=== PATIENT | female | born 1995 | race American Indian/Alaskan Native ===

== ENCOUNTER 2021-05-23 20:56 | Emergency (ER) | payer SELFPAY ==
[2021-05-24] MEDS ORDERED: oxyCODONE /ACETAMINOPHEN 5-325MG TAB PO ONE (00:32)
[2021-05-24 01:05] LABS: Bilirubin,Urine NEG (Negative); Blood,Urine NEG (Negative); Color,Urine Yellow (Yellow); HCG Qualitative,Urine Negative (Negative); Mucus,Urine FEW /HPF; Protein,Urine <15 mg/dL mg/dL (Negative); Urobilinogen,Urine < 2.0 mg/dL (<2.0)
--- NOTE | 2021-05-24 01:07 | Emergency Department Report ---
ED Female HPI - General Chief complaint: Urogenital-Female Stated complaint: BURINING URINATION/BACK PAIN Time Seen by Provider: 05/23/21 23:54 Source: patient Mode of arrival: Ambulatory Limitations: No Limitations - History of Present Illness MD Complaint: dysuria, pelvic pain -: Gradual, days(s) (For the past few days) Location: suprapubic Radiation: non-radiating Severity: mild Worsens with: urination Are you Now?: No Associated Symptoms: dysuria, other (Increased urgency decreased urinary production burning with urination). denies: vaginal discharge, vaginal bleeding, headaches, loss of appetite - Related Data Sexually active: Yes Previous Rx's Medication Instructions Recorded Last Taken Type Acetaminophen [Tylenol] 500 mg PO Q6HR PRN #30 tablet 11/26/19 Unknown Rx Ciprofloxacin HCl 500 mg PO BID #20 05/24/21 Unknown Rx Phenazopyridine [Pyridium] 200 mg PO PC #9 tablet 05/24/21 Unknown Rx Allergies Allergy/AdvReac Type Severity Reaction Status Date / Time Sulfa (Sulfonamide Allergy Unknown Verified 11/25/19 18:36 Antibiotics) ED Review of Systems ROS: Stated complaint: BURINING URINATION/BACK PAIN Other details as noted in HPI Comment: All other systems reviewed and negative ED Past Medical Hx - Social History Smoking Status: Never Smoker - Medications Home Medications: Home Medications Medication Instructions Recorded Confirmed Last Taken Type Acetaminophen [Tylenol] 500 mg PO Q6HR PRN #30 tablet 11/26/19 Unknown Rx Ciprofloxacin HCl 500 mg PO BID #20 05/24/21 Unknown Rx Phenazopyridine [Pyridium] 200 mg PO PC #9 tablet 05/24/21 Unknown Rx ED Physical Exam - General Limitations: No Limitations General appearance: alert, in no apparent distress - Head Head exam: Present: atraumatic, normocephalic - Eye Eye exam: Present: normal appearance - ENT ENT exam: Present: mucous membranes moist - Neck Neck exam: Present: normal inspection - Respiratory Respiratory exam: Present: normal lung sounds bilaterally. Absent: respiratory distress - Cardiovascular Cardiovascular Exam: Present: regular rate, normal rhythm. Absent: systolic murmur, diastolic murmur, rubs, gallop - GI/Abdominal GI/Abdominal exam: Present: soft, tenderness (Suprapubic region with palpation. Severe tenderness to the left region. Abdomen is soft bowel sounds positive), normal bowel sounds - Extremities Exam Extremities exam: Present: normal inspection - Back Exam Back exam: Present: normal inspection - Neurological Exam Neurological exam: Present: alert, oriented X3 - Psychiatric Psychiatric exam: Present: normal affect, normal mood - Skin Skin exam: Present: warm, dry, intact, normal color. Absent: rash ED Course Vital Signs 05/23/21 21:10 Temperature 98.5 F Pulse Rate 69 Respiratory 16 Rate Blood Pressure 148/84 O2 Sat by Pulse 98 Oximetry ED Medical Decision Making - Lab Data Lab Results 05/24/21 Range/Units Unknown Urine Color Yellow (Yellow) Urine Turbidity Clear (Clear) Urine pH 6.0 (5.0-7.0) Ur Specific [place] 1.016 (1.003-1.030) Urine Protein <15 mg/dl (Negative) mg/dL Urine Glucose (UA) Neg (Negative) mg/dL Urine Ketones Neg (Negative) mg/dL Urine Blood Neg (Negative) Urine Nitrite Neg (Negative) Urine Bilirubin Neg (Negative) Urine Urobilinogen < 2.0 (<2.0) mg/dL Ur Leukocyte Esterase Neg (Negative) Urine WBC (Auto) 1.0 (0.0-6.0) /HPF Urine RBC (Auto) 15.0 (0.0-6.0) /HPF U Epithel Cells (Auto) 6.0 (0-13.0) /HPF Urine Mucus Few /HPF Urine HCG, Qual Negative (Negative) Critical care attestation.: If time is entered above; I have spent that time in minutes in the direct care of this critically ill patient, excluding procedure time. ED Disposition Clinical Impression: Flank pain Disposition: HOME / SELF CARE / HOMELESS Is pt being admited?: No Does the pt Need Aspirin: No Condition: Stable Instructions: Urinary Tract Infection, Adult Prescriptions: Ciprofloxacin HCl 500 mg PO BID #20 Phenazopyridine [Pyridium] 200 mg PO PC #9 tablet Referrals: SHELLI ORTIZ MD [Primary Care Provider] - 3-5 Days
[2021-05-24 02:04] VITALS: BP 135/73
== END 2021-05-24 01:59 | disposition home or self-care (01) ==
LOC: ED 20:56
DX: R10.2 Pelvic and perineal pain (principal); R39.15 Urgency of urination; Z88.2 Allergy status to sulfonamides
CPT/HCPCS: 81001; 81025; 99283